=== PATIENT | female | born 1960 | race Caucasian/White ===

== ENCOUNTER 2018-04-17 02:05 | Emergency (ER) | payer BC, OTHER ==
--- NOTE | 2018-04-17 02:56 | ED ---
Lower Extremity - HPI Summary HPI Summary: 57-year-old female presents with right knee injury today. 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 States she fell down a couple stairs. She denies any head injury or loss conscious. Denies any other injury. No previous fracture to the area. No numbness or tingling. States she has not been able to place weight on the area very well. She has been placing ice on the area. She denies any popping or locking to joint. No weakness. - History of Current Complaint Chief Complaint: EDExtremityLower Stated Complaint: RT KNEE INJURY Time Seen by Provider: 04/17/18 02:50 Pain Intensity: 6 - Allergies/Home Medications Allergies/Adverse Reactions: Allergies Allergy/AdvReac Type Severity Reaction Status Date / Time No Known Allergies Allergy Verified 04/17/18 02:10 PMH/Surg Hx/FS Hx/Imm Hx Endocrine/Hematology History: Reports: Hx Thyroid Disease - HYPERTHYROIDISM Denies: Hx Diabetes Cardiovascular History: Denies: Hx Hypertension, Hx Pacemaker/ICD History: Denies: Hx Dialysis, Hx Renal Disease Sensory History: Reports: Hx Contacts or Glasses - GLASSES READING Denies: Hx Hearing Aid Opthamlomology History: Reports: Hx Contacts or Glasses - GLASSES READING Psychiatric History: Denies: Hx Panic Disorder - Cancer History Hx Chemotherapy: No Hx Radiation Therapy: No - Surgical History Surgery Procedure, Year, and Place[place] [facility] [place] [facility] [place] FATT[place] CYST [place]OV[place]- Rt GROIN AREA [place] [facility] [place] Anesthesia Reactions: No Infectious Disease History: No Infectious Disease History: Denies: Traveled Outside the [place] in Last 30 Days - Social History Alcohol Use: Occasionally Substance Use Type: Reports: None Smoking Status (MU): Never Smoked Tobacco Review of Systems Negative: Fever Negative: Chest Pain Negative: Shortness Of Breath Positive: Myalgia - right knee pain All Other Systems Reviewed And Are Negative: Yes Physical Exam Triage Information Reviewed: Yes Vital Signs On Initial Exam: Initial Vitals Temp Pulse Resp BP Pulse Ox 97.9 F 64 15 123/88 97 04/17/18 02:07 04/17/18 02:07 04/17/18 02:07 04/17/18 02:07 04/17/18 02:07 Vital Signs Reviewed: Yes Appearance: Positive: Well-Appearing Skin: Positive: Warm, Dry Head/Face: Positive: Normal Head/Face Inspection Eyes: Positive: Normal, Conjunctiva Clear ENT: Positive: Pharynx normal Respiratory/Lung Sounds: Positive: Clear to Auscultation, Breath Sounds Present Cardiovascular: Positive: Normal, RRR Musculoskeletal: Positive: Strength/ROM Intact - right knee, Other - tenderness right knee, good pulses Neurological: Positive: Normal Psychiatric: Positive: Normal Diagnostics - Vital Signs Vital Signs Temp Pulse Resp BP Pulse Ox 04/17/18 02:07 97.9 F 64 15 123/88 97 - Laboratory Lab Statement: Any lab studies that have been ordered have been reviewed, and results considered in the medical decision making process. - Radiology knee Xray Interpretation: No Acute Changes Radiology Interpretation Completed By: ED Physician Lower Extremity Course/Dx - Course Course Of Treatment: 57-year-old female presents with right knee injury today. 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 States she fell down a couple stairs. She denies any head injury or loss conscious. Denies any other injury. No previous fracture to the area. No numbness or tingling. States she has not been able to place weight on the area very well. She has been placing ice on the area. On exam has tenderness over lateral aspect of patella. Neurovascularly intact. X-ray read by me as normal. We'll give the immobilizer and orthopedic referral. Patient understands agrees plan. - Diagnoses Differential Diagnosis/HQI/PQRI: Positive: Contusion, Fracture (Closed), Sprain Provider Diagnoses: Right knee injury Discharge - Sign-Out/Discharge Documenting (check all that apply): Patient Departure - Discharge Plan Condition: Good Disposition: HOME Patient Education Materials: Knee Pain (ED) Referrals: Shana Jo MD [Primary Care Provider] - Ming Engel MD [Medical Doctor] - Additional Instructions: Use immobilizer Stay off knee as much as possible Ice, elevate, Ibuprofen or Tylenol every 6 hours for pain Follow up with ortho if no improvement Return to ED if develop or any new or worsening symptoms - Billing Disposition and Condition Condition: GOOD Disposition: Home
[2018-04-17 03:06] VITALS: BP 119/71
--- NOTE | 2018-04-17 08:29 | RAD ---
INDICATION: Right knee injury. TECHNIQUE: 4 views of the right knee were obtained. FINDINGS: The bones are normal alignment. There is a small joint effusion present. No fracture is seen. There is mild to moderate osteoarthritic change in all 3 compartments. IMPRESSION: SMALL JOINT EFFUSION, NO FRACTURE IS SEEN. R2
== END 2018-04-17 02:59 | disposition home or self-care (01) ==
LOC: ED 02:05
DX: S89.91XA Unspecified injury of right lower leg, initial encounter (principal); W10.9XXA Fall (on) (from) unspecified stairs and steps, initial encounter; Y92.9 Unspecified place or not applicable; M25.461 Effusion, right knee
CPT/HCPCS: 99282

== ENCOUNTER → 2018-07-13 09:39 | Day surgery (SDC) | payer BC, OTHER ==
[~2018-07-13 09:39] MED LIST: Acetaminophen TAB* 325 MG ONE; Buffered Lidocaine 0.9% SYRIN* 5 ML/SYR SYRINGE INTRADERM ONE; Bupivacaine 0.5% W/EPI SDV* 30 ML VIAL ONE; Chloroprocaine 2%* 20 ML VIAL ONE; Dexamethasone IV* 4 MG/ML 1 ML (4 MG) IV SLOW PU ONE; Dexamethasone IV* 4 MG/ML 1 ML (4 MG) ONE; DiMENhydriNATE IV* 50 MG/ML VIAL IV PUSH PRN; EPINEPHRINE 1 MG/ML 1 ML VIAL ONE; Famotidine IV* 10 MG/ML 2 ML (20 mg) IV ONE; Famotidine IV* 10 MG/ML 2 ML (20 mg) ONE; HYDROcodone/ACETAMIN 5-325 MG* 1 TAB PO PRN; Ketorolac INJ* 30 MG/ML 1 ML VIAL IV PRN; Ketorolac INJ* 30 MG/ML 1 ML VIAL ONE; Lactated Ringers 1000 ML Bag* 1,000 ML IV SCH; Midazolam* 1 MG/ML 2 ML VIAL (2 MG) ONE; Naloxone* 0.4 MG/ML 1 ML VIAL IV PRN; ceFAZolin 2 GM PREMIX in ORs 2 GM/50 ML BAG IVPB ONE; fentaNYL* 50 MCG/ML 2 ML VIAL (100 MCG VIAL) ONE; methylPREDNISolone ACETATE 40* 40 MG/ML 1 ML VIAL ONE
[2018-07-13] MEDS: fentaNYL* 50 MCG/ML 2 ML VIAL (100 MCG VIAL) IV PRN ×4 (14:33→15:43)
[2018-07-13 17:06] VITALS: BP 155/80
--- NOTE | 2018-07-15 22:13 | OP ---
OPERATIVE REPORT: DATE OF OPERATION: 07/13/18 DATE OF : 56 SURGEON: Maurilio Pritchett MD BOOKBINDER CHIEF: DEBORAH Navarrete A physician assistant corporate controller was required for the length of the procedure for assistance with patient positioning, knee manipulation, and closure. ANESTHESIOLOGIST: Dr. Corinne Evans. ANESTHESIA: Spinal anesthesia, general sedation. PRE-OP DIAGNOSES: 1. Right knee medial meniscus tear. 2. Right knee mild osteoarthritis. POST-OP DIAGNOSES: 1. Right knee medial meniscus tear. 2. Right knee osteoarthritis. 3. Right knee focal grade 4 articular cartilage defect, with large flaps of articular cartilage, unstable. OPERATIVE PROCEDURE: 1. Right knee arthroscopic partial medial meniscectomy. 2. Right knee arthroscopic debridement of unstable articular cartilage, lateral femoral condyle. 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 Despite a full spectrum of nonoperative management, the patient's knee pain had only improved 50%. MRI had demonstrated a medial meniscus tear of the posterior horn and body with a likely displaced fragment into the inferomedial gutter. The radiologist had concurred with my read and said without question there was a displaced fragment of medial meniscus extending into the gutter adjacent to the medial meniscus. I discussed with the patient risks and potential complications of surgery. Discussed that the results of arthroscopy are not as predictable in patients who have concurrent osteoarthritis. The patient by x-ray had some osteophytes tricompartmentally, but no joint space narrowing. By MRI, she was noted to have some degenerative changes at the patellofemoral compartment. The patient described both lateral and medial pain preoperatively. ANTIBIOTICS: Ancef 2 g IV. IV FLUIDS: 800 cc crystalloid. TOURNIQUET TIME: 31 minutes at 300 mmHg. [id number] TIME: 26 minutes. SPECIMEN: None. IMPLANTS: None. COMPLICATIONS: None. ESTIMATED BLOOD LOSS: Minimal. DESCRIPTION OF PROCEDURE: In preoperative holding, the patient signed a written consent. Operative extremity was marked in the preoperative holding. The patient was taken back to the operating room and placed supine on operating room table. The patient then underwent a spinal anesthetic block by Dr. Evans. She was then gently sedated when lied supine on operating room table. The right proximal thigh had a tourniquet placed about it. The right distal thigh was placed in a circumferential thigh andres. The right lower extremity was prepped and draped. Surgical time-out was performed. An anterolateral knee arthroscopy portal was established using standard technique. Noted in the patellofemoral compartment significant synovitis from anterior. I established an anteromedial portal under direct visualization and debrided some of the anterior synovitis. Drop down to the medial compartment where there was visible a complex tear of the posterior body and posterior horn of the medial meniscus. There were several displaced flaps of tissue, with displacement into the more central area of the lateral compartment. I started my partial meniscectomy. Working first from the anteromedial portal and then from the anterolateral portal, I debrided the torn meniscus with arthroscopic biter and arthroscopic shaver. After I had done some of this partial meniscectomy, I next probed the meniscus. There was an additional undersurface flap of meniscus tissue. There was clearly displacing into the inferomedial gutter. I obtained some excellent photographs of this, flap being manipulated by my arthroscopic probe. I debrided that flap tear back to a stable rim and meniscus in general back to a stable rim of tissue using arthroscopic shaver and arthroscopic biter. I probed the remainder of the meniscus. There were no additional flaps and the rest of the meniscus was stable. The medial compartment had no articular cartilage changes greater than grade 1 in it. I confirmed the presence of the patient's ACL and PCL and the intercondylar notch. I next moved to the lateral compartment. The patient had visible what it first seemed not significantly serious, a rent or a crack in the articular cartilage of the lateral femoral condyle. It was best visualized with the knee in more flexion because with the knee in relative extension spacing directly distal, being a weight- bearing zone. I probed this crack. It had large flaps of articular cartilage on either side that had absolutely no connection to the underlying subchondral bone. This was unfortunate. The patient had described lateral as well as medial pain preoperative and this could certainly be a source of lateral knee pain. There was no lateral meniscus tear visible I should state. I probed the cartilage on either side of this fissure with an arthroscopic probe. I used an arthroscopic shaver to debride the articular cartilage on either side of this rent where the cartilage had no connection to bone. I debrided it back to an area where articular cartilage was stably attached to subchondral bone. Unfortunately, this represented a decent size defect in the lateral femoral condyle articular cartilage. I was happy with the stability of the articular cartilage surrounding this lesion. I did not specifically measure it with a probe as I did not anticipate that the patient would be interested in articular cartilage confucianism procedure given the overall state of the knee and the patient's age. I next returned to the patellofemoral compartment, where I had started. Without the anterior synovitis, this afforded me better views of this compartment. The patient had at least grade 2 changes in the trochlear groove diffusely and more focally about the patella. I removed instruments and fluid from the knee joint. Closed skin incisions with [id number] and 12 stitches using nylon 3-0 suture. I injected 3 cc of Depo-Medrol, 40 mg/mL for a total of 120 mg of Depo- Medrol, given the significant degenerative changes encountered in this knee, to help facilitate speeder recovery postoperatively. Xeroform, 4x4's, ABD, sterile Webril, Raffi bandage from foot to proximal thigh. Cooling unit applied to the knee. The patient was lightened of sedated and taken to the PACU. DISPOSITION: The patient was provided with wound care instructions. She was given Percocet as needed for pain control, aspirin for 2 weeks for DVT prophylaxis, and Keflex for 3 days for infection prophylaxis. She will start physical therapy immediately. Since the patient did not have general anesthesia and seemed to awake in PACU, she requested to speak to me regarding my operative findings and I talked to her about the medial meniscus tear as well as the lateral femoral condyle articular cartilage defect. The patient will follow up with me 10 to 14 days postoperatively in clinic for a wound check and removal of stitches. [id number]/[facility] #: [id number] [place]
== END | disposition home or self-care (01) ==
LOC: OR 09:39
PROVIDERS: ATTEND Orthopaedic Surgery
DX: S83.241A Other tear of medial meniscus, current injury, right knee, initial encounter (principal); M23.91 Unspecified internal derangement of right knee; M17.11 Unilateral primary osteoarthritis, right knee; E03.9 Hypothyroidism, unspecified; W10.9XXA Fall (on) (from) unspecified stairs and steps, initial encounter; Y93.89 Activity, other specified; Y92.9 Unspecified place or not applicable; Y99.0 Civilian activity done for income or pay
CPT/HCPCS: A9270-GY; J0690; J1030; J1100; J1885; J2250; J2400; J3010